=== PATIENT | female | born 1995 | race Caucasian/White ===

== ENCOUNTER 2018-08-23 17:26 | Emergency (ER) | payer OTHER ==
[~2018-08-23] VITALS: Ht 165.1 cm; Wt 107.0 kg
[2018-08-23 18:00] VITALS: Ht 165.1 cm; Wt 107.0 kg
[2018-08-23 19:09] LABS: UA SPECIFIC GRAVITY 1.025 (1.005-1.035); microscopic required? YES; urine erythrocyte 3+ (NEGATIVE)
[2018-08-23 19:11] LABS: BASOPHIL % 0.4 % (0-2); PLATELET COUNT 407 x10^3mcL (130-400)
[2018-08-23 19:21] LABS: CALCIUM 8.9 mg/dL (8.5-10.1); CARBON DIOXIDE 28.2 mmol/L (21-32); CHLORIDE SERUM 107 mmol/L (98-107); CREATININE SERUM 0.8 mg/dL (0.6-1.0); GFR1 > 60 mL/min; GLUCOSE SERUM 88 mg/dL (74-106); POTASSIUM SERUM 4.1 mmol/L (3.5-5.1); SODIUM SERUM 143 mmol/L (136-145)
[2018-08-23 19:22] LABS: ALKALINE PHOSPHATASE 95 U/L (46-116); ALT/SGPT 20 U/L (14-59); AST/SGOT 21 U/L (15-37); BILIRUBIN TOTAL 0.1 mg/dL (0.20-1.00); TOTAL PROTEIN, SERUM 6.8 g/dL (6.4-8.2)
[2018-08-23 19:26] LABS: ALBUMIN 2.1 g/dL (3.4-5.0)
[2018-08-23 21:23] VITALS: BP 117/66
== END 2018-08-23 21:23 | disposition home or self-care (01) ==
LOC: ED 17:26
PROVIDERS: Emergency Medicine
DX: O90.89 Other complications of the puerperium, not elsewhere classified (principal); R22.43 Localized swelling, mass and lump, lower limb, bilateral; Z98.890 Other specified postprocedural states
CPT/HCPCS: J1940; J3475